=== PATIENT | female | born 1985 | race Caucasian/White ===

== ENCOUNTER 2021-03-15 11:43 | Emergency (ER) | payer SELFPAY ==
[~2021-03-15] VITALS: Ht 172.7 cm; Wt 121.1 kg
[2021-03-15 11:55] VITALS: BP 138/88
--- NOTE | 2021-03-15 12:00 | NUR ---
PT IN LOBBY
--- NOTE | 2021-03-15 12:19 | NUR ---
JOSE LUIS DASH EVALUATING PT
--- NOTE | 2021-03-15 13:17 | NUR ---
JOSE LUIS Vazquez is evaluating patient in triage room accompanied by RN medical delivery driver. Patient's in triage.
--- NOTE | 2021-03-15 13:20 | NUR ---
Patient to wait in lobby for next available bed.
[2021-03-15] MEDS ORDERED: SULF-59 PO (13:26)
[2021-03-15] MEDS ORDERED: CEPH-588 PO (13:26)
[2021-03-15] MEDS ORDERED: IBUP-2213 PO (13:26)
--- NOTE | 2021-03-15 13:30 | NUR ---
NO NURSING INTERVENTIONS IMPLEMENTED
[2021-03-15 13:33] VITALS: BP 138/88
--- NOTE | 2021-03-15 13:33 | NUR ---
Patient discharged with v/s stable. Written and verbal after care instructions given and explained. Patient alert, oriented and verbalized understanding of instructions. Ambulatory with steady gait. All questions addressed prior to discharge. ID band removed. Patient advised to follow up with PMD. Rx of KEFLEX, IBUPROFEN, BACTRIM given. Patient educated on indication of medication including possible reaction and side effects. Opportunity to ask questions provided and answered.
== END 2021-03-15 13:33 | disposition home or self-care (01) ==
LOC: MED 11:43
DX: N61.0 Mastitis without abscess (principal); F12.90 Cannabis use, unspecified, uncomplicated; Z79.899 Other long term (current) drug therapy
CPT/HCPCS: 99283

== ENCOUNTER 2021-11-16 11:21 | Emergency (ER) | payer MEDICAID ==
[~2021-11-16] VITALS: Ht 175.3 cm; Wt 113.4 kg
[~2021-11-16 11:21] MED LIST: CEPH-588 PO; IBUP-2213 PO; SULF-59 PO
[2021-11-16 12:10] VITALS: BP 119/70
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
[2021-11-16] MEDS ORDERED: IBUPROFEN 600 MG TAB PO ONE (12:35)
[2021-11-16] MEDS ORDERED: IBUP-2213 PO (14:19)
--- NOTE | 2021-11-16 14:26 | NUR ---
PLACED PTS LEFT ARM IN A SLING. PT DID NOT COMPLAIN OF PAIN OR DISCOMFORT A RESULT OF THE SLING BEING PLACED. +CMS BEFORE/AFTER.
[2021-11-16 14:28] VITALS: BP 115/66
== END 2021-11-16 14:28 | disposition home or self-care (01) ==
LOC: MED 11:21
DX: S46.912A Strain of unspecified muscle, fascia and tendon at shoulder and upper arm level, left arm, initial encounter (principal); F17.210 Nicotine dependence, cigarettes, uncomplicated; Z79.1 Long term (current) use of non-steroidal anti-inflammatories (NSAID); Z79.2 Long term (current) use of antibiotics; X58.XXXA Exposure to other specified factors, initial encounter; Y92.89 Other specified places as the place of occurrence of the external cause; Y93.89 Activity, other specified; Y99.8 Other external cause status
CPT/HCPCS: 73080; 99283